=== PATIENT | male | born 1985 ===

== ENCOUNTER 2020-10-04 09:27 | Emergency (ER) | payer SELFPAY ==
[2020-10-04 09:36] VITALS: BP 123/71; PULSE 89; RESP 16; TEMP 36.6; O2SAT 97; BMI 23.6
[2020-10-04] MEDS: Lidocaine HCl 1 % MPF 5 ML VIAL SUBCUT ×2 (10:18)
--- NOTE | 2020-10-04 10:58 | XR_ITS ---
EXAMINATION: XR WRIST-RIGHT CLINICAL INFORMATION: Right wrist pain. Suspected fracture. COMPARISON: None TECHNIQUE: 3 views of the right wrist were obtained. FINDINGS: The bony alignments are intact. The cortices are intact. Articular margins, joint space appear unremarkable. The soft tissues are unremarkable. XR/XR hand wrist RT IMPRESSION: No radiographic evidence of any displaced fracture is seen.
--- NOTE | 2020-10-04 11:07 | ED.WOUNDLAC ---
HPI - Wound/Laceration General Chief Complaint: Wound/Laceration Stated Complaint: LAC Time Seen by Provider: 10/04/20 10:04 History of Present Illness HPI narrative: patient cut right hand on glass at home an hour ago, pain is mild, no other injury Related Data Previous Rx's Medication Instructions Recorded ibuprofen 600 mg PO Q6H PRN #14 tab 10/04/20 Allergies Allergy/AdvReac Type Severity Reaction Status Date / Time No Known Allergies Allergy Unverified 07/17/20 16:44 Review of Systems Review of Systems: no numbness weakness or tingling, no foreign body sensation, n0 other injury, no headache no neck pain Yes all other systems are reviewed and are negative [facility] Past Medical History Attestation statement: The following information was validated with the patient. [facility] Narrative: no relevant medical history, last tetanus shot was many years ago but he does not recall when Social History Social History Advance Directives: No Advance Directives Information Provided: No Physical Exam Vital Signs: Vital Signs: Last Vital Signs Temp 97.8 F 10/04/20 09:36 Pulse 89 10/04/20 09:36 Resp 16 10/04/20 09:36 BP 123/71 10/04/20 09:36 Pulse Ox 97 10/04/20 09:36 Body Mass Index 23.6 patient is comfortable, A&O x3, head is normocephalic atraumatic the neck is supple nontender Respiratory no distress The right hand has a 2 cm laceration on the dorsum of the hand that is subcutaneous, there is full tendon function on extension and flexion, sensation and motor are intact, there is full range of motion in the fingers, no bony tenderness or swelling Neuro no focal deficit Course Course Course Narrative: 2 cm dorsal right hand laceration is cleansed and irrigated with normal saline, examined for foreign body and none was found Anesthesia was 6 cc of 1% lidocaine without epi The wound was closed with 550 nylon sutures, with good approximation no bleeding Discharge Plan Discharge Clinical Impression: Laceration of hand, right Qualifiers: Encounter type: initial encounter Foreign body presence: without foreign body Qualified Code(s): S61.411A - Laceration without foreign body of right hand, initial encounter Patient Disposition: Home, Self-Care Additional Instructions: stitches out 7-10 days Return at any time for any signs of infection such as redness, increased pain and swelling, red stripe up the arm, fever, discharge from the wound, any worse condition or any concerns You got a tetanus shot Prescriptions: New ibuprofen 600 mg tablet 600 mg PO Q6H PRN (Reason: pain) Qty: 14 RF: 0 Interventions: ED Discharge Assessment Last Done: 10/04/20 11:39 Discharge Date/Time: 10/04/20 11:40
== END 2020-10-04 11:40 | disposition home or self-care (01) ==
PROVIDERS: Emergency Provider Emergency Medicine Emergency Medical Services
DX: S61.412A Laceration without foreign body of left hand, initial encounter (principal); W25.XXXA Contact with sharp glass, initial encounter; Y93.9 Activity, unspecified; Y92.019 Unspecified place in single-family (private) house as the place of occurrence of the external cause; Y99.9 Unspecified external cause status
CPT/HCPCS: 12001; 73110; 73130; 90471; 90715; 99283; 99284

== ENCOUNTER 2020-10-30 09:51 | Emergency (ER) | payer OTHER, SELFPAY ==
[2020-10-30 10:08] VITALS: BP 105/62; PULSE 75; RESP 17; TEMP 36.8; O2SAT 96; BMI 22.2
--- NOTE | 2020-10-30 10:11 | ED_ITS ---
HPI - Skin/Abscess/Foreign Bdy General Chief complaint: Skin/Abscess/Foreign Body Stated complaint: suture removal Time Seen by Provider: 10/30/20 10:11 History of Present Illness HPI narrative: Patient is a 35-year-old male presents today after having a laceration to the right hand 3 weeks ago. Patient came for suture removal. No fever no chills no systemic complaints. Related Data Previous Rx's Medication Instructions Recorded ibuprofen 600 mg PO Q6H PRN #14 tab 10/04/20 Allergies Allergy/AdvReac Type Severity Reaction Status Date / Time No Known Allergies Allergy Verified 10/30/20 10:10 Review of Systems Review of Systems: Constitutional: No Weight loss, No Fever, No Chills, No Night Sweats, No Fatigue, No Malaise ENT/Mouth: No Hearing loss, No Ear Pain, No Nasal Congestion, No Sinus Pain, No Hoarseness, No sore throat, No Rhinorrhea, No Swallowing Difficulty Eyes: No Eye Pain, No Swelling, No Redness, No Foreign Body, No Discharge, No Vision Changes Cardiovascular: No Chest Pain, No SOB, No Dyspnea on Exertion, No Orthopnea, No Edema, No Palpitations Respiratory: No Cough, No Sputum, No Wheezing, No Smoke Exposure, No Dyspnea Gastrointestinal: No Nausea, No Vomiting, No Diarrhea, No Constipation, No abdominal Pain, No Hematochezia, No Melena Genitourinary: no irregular bleeding, No Dysuria, No Urinary Frequency, No Hematuria, No Urinary Incontinence, No Urgency, No Flank Pain, No Urinary Flow Changes, No Hesitancy Musculoskeletal: No joint pain, No Myalgias, No Joint Swelling Skin: No Skin Lesions, No rash Neuro: No Weakness, No Numbness, No Paresthesias, No Loss of Consciousness, No Dizziness, No Headache Psych: No Anxiety/Panic, No Depression, No SI/HI/AH/VH, No Social Issues, Heme/Lymph: No Bruising, No Bleeding,No Lymphadenopathy Endocrine: No Polyuria, No Polydipsia, No Temperature Intolerance [facility] Past Medical History Attestation statement: The following information was validated with the patient. Medical History (Updated 10/30/20 @ 10:13 by Xiomara Lopez MD) No known health problems Physical Exam Vital Signs: Vital Signs: Last Vital Signs Temp 98.2 F 12/31/20 10:08 Pulse 75 10/30/20 10:08 Resp 17 10/30/20 10:08 BP 105/62 10/30/20 10:08 Pulse Ox 96 10/30/20 10:08 Body Mass Index 22.2 Appearance: Alert. Oriented X3. No acute distress. Eyes: Pupils equal, round and reactive to light. ENT: Pharynx normal. Neck: Normal inspection. Neck supple. No lymph nodes noted. No crepitus CVS: Normal heart rate and rhythm. Pulses normal. Normal S1 and S2 Respiratory: No respiratory distress. Breath sounds normal. No Wheezing. No rales Abdomen: Soft and nontender. No rigidity. No distention. good BS x4 Skin: Skin warm and dry. Normal skin color. Normal skin turgor. Extremities: No lower extremity edema. Neurovascular intact to all extremities. Examination of the right hand showed the wound in the lateral hypothenar area is well healed. Neuro: Oriented X 3. No motor deficit. No sensory deficit. Moving all extermities. No slurred speech MDM - Skin/Abscess/Foreign Bdy MDM Narrative Medical decision making narrative: Sutures are removed. There was no complication. Patient is to be discharged home. In stable condition. Discharge Plan Discharge Clinical Impression: Visit for suture removal Patient Disposition: Home, Self-Care Instructions: Stitches Removal (ED) Prescriptions: No Action ibuprofen 600 mg tablet 600 mg PO Q6H PRN (Reason: pain) Qty: 14 RF: 0 Referrals: Physician,None [Primary Care Provider] - None (as needed)
== END 2020-10-30 10:30 | disposition home or self-care (01) ==
LOC: HO.ED 10:17
PROVIDERS: Emergency Provider Emergency Medicine Emergency Medical Services
DX: Z48.02 Encounter for removal of sutures (principal)
CPT/HCPCS: 99283

== ENCOUNTER 2024-12-19 09:27 | Emergency (ER) | payer OTHER, SELFPAY ==
[2024-12-19 09:34] VITALS: BP 135/93; PULSE 84; RESP 16; TEMP 36.9; O2SAT 97; BMI 23.7
[2024-12-19 10:33] LABS: MANUAL DIFF FLAG NO
[2024-12-19 10:34] LABS: Basophils Percent Auto 0.1 % (0-2); Eosinophils Percent Auto 0.5 % (0-4); Hematocrit 45.3 % (42.0-52.0); Hemoglobin 16.4 g/dl (14.0-18.0); Imm Gran Abs Auto 0.04 X10*3/uL (0.00-0.03); Imm Gran Pct Auto 0.5 % (0.0-0.4); Lymphocytes Absolute Auto 1.2 X10*3/uL (1.2-4.9); Lymphocytes Percent Auto 15.2 % (20-40); Mean Corpuscular HGB Conc 36.2 g/dl (31.0-36.0); Mean Corpuscular Hemoglobin 33.7 pg (27.0-33.0); Monocytes Absolute Auto 0.7 X10*3/uL (0.1-1.2); Monocytes Percent Auto 8.6 % (2-11); Neutrophils Absolute Auto 5.9 x10*3/uL (2.0-8.3); Neutrophils Percent Auto 75.1 % (45-73); Platelet Count 215 X10*3/uL (160-400); Red Blood Count 4.87 X10*6/uL (4.60-5.80); Red Cell Distribution Width 10.9 % (11.0-16.0); White Blood Count 7.9 X10*3/uL (4.8-10.8)
[2024-12-19 10:48] LABS: Alanine Aminotransferase 22 U/L (0-40); Albumin Level 4.8 g/dL (3.5-5.0); Alkaline Phosphatase 66 U/L (39-117); Anion Gap 13 (12-20); Aspartate Amino Transferase 25 U/L (5-37); Bilirubin Total 0.8 mg/dL (0.0-1.0); Blood Urea Nitrogen 8 mg/dL (9-16); C Reactive Protein 6.92 mg/dL (< or = 0.50); Calcium 9.5 mg/dL (8.4-10.2); Carbon Dioxide 26 mmol/L (22-29); Chloride 104 mmol/L (96-108); Creatinine Clr Calc Pharmacy 132.1; Estimated Glomerular Filt Rate > 60; Glucose Random 119 mg/dL (60-115); Potassium 3.8 mmol/L (3.3-5.1); Sodium 139 mmol/L (135-145); Total Protein 8.5 g/dL (6.5-8.0)
[2024-12-19 11:15] LABS: Erythrocyte Sedimentation Rate 28 MM/HR (0-15)
--- NOTE | 2024-12-19 14:17 | ED_ITS ---
HPI - Dental/Oral General Chief complaint: Dental/Oral Stated complaint: Toothache, Swelling on R Cheek Time Seen by Provider: 12/19/24 14:13 Source: patient Mode of arrival: ambulatory Limitations: no limitations History of Present Illness ED Provider: LAYNE JAMES Narrative: 39 yo male otherwise healthy has had a toothache since Tuesday yesterday noted facial swelling but no fevers no difficulty swallowing. He tried tyelnol without relief. No trauma reported, he does not have a dentist, no fevers. MD Complaint: tooth pain Location: Tooth # (3/4/5) Onset (ago): day(s) (6) Duration: worsening Severity: moderate Relieving factors: nothing Exacerbating factors: chewing, cold and heat Context: poor dental care Associated symptoms: gum swelling and other (facial swelling) Treatment prior to arrival: other (tylenol) Related Data Previous Rx's ?Medication ?Instructions ?Recorded ibuprofen 600 mg tablet 600 mg PO Q6H PRN pain #14 tabs 10/04/20 amoxicillin 875 mg-potassium 1 tab PO BID #19 tabs 12/19/24 clavulanate 125 mg tablet hydrocodone 5 mg-acetaminophen 325 1 tab PO Q6H PRN pain #10 tabs 12/19/24 mg tablet Allergies Allergy/AdvReac Type Severity Reaction Status Date / Time No Known Allergies Allergy Verified 12/19/24 09:36 Review of Systems 2 Review of Systems: Constitutional : No Fever, No Chills ENT/Mouth : No swallowing difficulty, no change in voice, positive dental pain, positive jaw pain, positive facial swelling Eyes: No Eye Pain, No Swelling Cardiovascular : No Chest Pain, No SOB Respiratory : No Cough, No Sputum Gastrointestinal : No Nausea, No Vomiting, No Diarrhea Genitourinary : No Dysuria Musculoskeletal : No Myalgias Skin : No rash Neuro : No Weakness, No Numbness, No Headache PMFSH Past Medical History Attestation statement: The following information was validated with the patient. Source: old records reviewed Medical History No known health problems Social History Social History (Updated 12/19/24 @ 14:37 by Temitope Luevano DO) Patient Tobacco Use Status: Never used Tobacco Physical Exam 2 Vital Signs: Vital Signs: Last Vital Signs Temp 98.5 F 12/19/24 09:34 Pulse 84 02/19/25 09:34 Resp 16 12/19/24 09:34 BP 135/93 H 12/19/24 09:34 Pulse Ox 97 12/19/24 09:34 O2 Del Method Room Air 12/19/24 09:34 BMI result Body Mass Index 23.7 Appearance: Alert. Oriented X3. No acute distress. Eyes: Pupils equal, round and reactive to light. ENT: Pharynx normal. no trismus no proptosis of eye and no pain with EOM, has mild to moderate R sided facial swelling no redness/warmth, has poor dentition, parotid gland is normal, I cannot palpate a fluctuant area on mouth to drain Neck: Normal inspection. Neck supple. no sublingual or submandibular swelling on exam CVS: Normal heart rate and rhythm. Pulses normal. Respiratory: No respiratory distress. Breath sounds normal. Abdomen: Soft and non-tender. Skin: Skin warm and dry. Normal skin color. Normal skin turgor. Extremities: No lower extremity edema. No calf ttp Neuro: Oriented X 3. No motor deficit. No sensory deficit. CN2-12 intact Medications Administered Discontinued Medications Generic Name Dose Route Start Last Admin Trade Name Freq PRN Reason Stop Dose Admin Hydrocodone Bitart/Acetaminophen 1 tab 12/19/24 14:16 12/19/24 14:30 Hydrocodone Bit/Acetam 5/325 Tablet PO 12/19/24 14:17 1 tab ONCE ONE Administration Amoxicillin/Clavulanate Potassium 875 mg 12/19/24 14:16 12/19/24 14:30 Amoxicillin/Potassium Clav 875 Mg Tablet PO 12/19/24 14:17 875 mg ONCE ONE Administration Medical Decision Making Medical Decision Making [facility] Narrative: 39 yo male with no PMH here with R sided upper toothache and now with facial swelling - he has no signs of deeper space infection and I cannot I+D any abscess. I offered for him to wait longer for IV abx but he has already been waiting a long time. He agreees to start oral medications I gave first dose in ED and if it worsens I instructed him to come back immediately. Differential Diagnosis Differential Diagnoses: The differential diagnosis associated with the presentation includes toothache, dental abscess Admission/Observation Consideration of admission/observation: Escalation of care including admission/observation considered wants to trial oral abx first Lab Data [facility] Lab Attestation statement: I reviewed the patient's lab results. 12/19/24 10:24 12/19/24 10:24 Labs: Lab Results 12/19/24 Range/Units 10:24 WBC 7.9 (4.8-10.8) X10*3/uL RBC 4.87 (4.60-5.80) X10*6/uL Hgb 16.4 (14.0-18.0) g/dl Hct 45.3 (42.0-52.0) % MCV 93.0 (80.0-98.0) fL MCH 33.7 H (27.0-33.0) pg MCHC 36.2 H (31.0-36.0) g/dl RDW 10.9 L (11.0-16.0) % Plt Count 215 (160-400) X10*3/uL MPV 9.0 L (9.4-12.4) fL Immature Gran % (Auto) 0.5 H (0.0-0.4) % Neut % (Auto) 75.1 H (45-73) % Lymph % (Auto) 15.2 L (20-40) % [place] % (Auto) 8.6 (2-11) % Eos % (Auto) 0.5 (0-4) % Baso % (Auto) 0.1 (0-2) % Lymph # (Auto) 1.2 (1.2-4.9) X10*3/uL [place] # (Auto) 0.7 (0.1-1.2) X10*3/uL Eos # (Auto) 0.0 (0.0-0.4) X10*3/uL Baso # (Auto) 0.0 (0.0-0.2) X10*3/uL Abs Immat Gran (auto) 0.04 H (0.00-0.03) X10*3/uL Absolute Neuts (auto) 5.9 (2.0-8.3) x10*3/uL Absolute Nucleated RBC 0.000 (0.0-0.012) X10*3/uL Nucleated RBC % (auto) 0.0 (0.0-0.2) /100WBC ESR 28 H (0-15) MM/HR Sodium 139 (135-145) mmol/L Potassium 3.8 (3.3-5.1) mmol/L Chloride 104 (96-108) mmol/L Carbon Dioxide 26 (22-29) mmol/L Anion Gap 13 (12-20) BUN 8 L (9-16) mg/dL Creatinine 0.79 (0.5-1.4) mg/dL Estim Creat Clear Calc 132.1 Estimated GFR > 60 Random Glucose 119 H (60-115) mg/dL Calcium 9.5 (8.4-10.2) mg/dL Total Bilirubin 0.8 (0.0-1.0) mg/dL AST 25 (5-37) U/L ALT 22 (0-40) U/L Alkaline Phosphatase 66 (39-117) U/L C-Reactive Protein 6.92 H (< or = 0.50) mg/dL Total Protein 8.5 H (6.5-8.0) g/dL Albumin 4.8 (3.5-5.0) g/dL Prescription Management I considered prescription management with: Pain Medication and Antibiotic Discharge Plan Discharge Clinical Impression: Toothache, Dental abscess Patient Disposition: Home, Self-Care Instructions: Dental Abscess (ED), Toothache (ED) Additional Instructions: return for worsening symptoms such as pain with moving eyes, increased swelling, cannot swallow, high fevers, confusion, or any other concerns next dose of antibiotics 8pm tonight PLEASE SEE THE DENTIST TOMORROW! On amoxicillin-clavulanate, softer bowel movements are to be expected. Call your provider if you move your bowels more than 4 times a day, your bowel movements are almost all liquid, or you get a rash.? Prescriptions: New amoxicillin-pot clavulanate 875-125 mg tablet 1 tab PO BID Qty: 19 0RF hydrocodone-acetaminophen 5-325 mg tablet 1 tab PO Q6H PRN (Reason: pain) Qty: 10 0RF Rx Instructions: partial fill okay; Partial Fill upon patient request. No Action ibuprofen 600 mg tablet 600 mg PO Q6H PRN (Reason: pain) Qty: 14 0RF Stand Alone Forms: Work/School Release Interventions: ED Discharge Assessment Last Done: 12/19/24 14:32 Print Language: Welsh
[2024-12-19] MEDS: HYDROcodone Bit/Acetam 5/325 TABLET 1 TAB PO (14:30)
[2024-12-19] MEDS: Amoxicillin/Potassium Clav 875 MG TABLET PO (14:30)
[2024-12-19 14:32] VITALS: BP 135/93; PULSE 84; RESP 16; TEMP 36.9; O2SAT 97
== END 2024-12-19 14:33 | disposition home or self-care (01) ==
PROVIDERS: Physician Assistant Medical; Emergency Provider Emergency Medicine
DX: K04.7 Periapical abscess without sinus (principal); K08.89 Other specified disorders of teeth and supporting structures
CPT/HCPCS: 36415; 80053; 85025; 85652; 86140; 99283